=== PATIENT | female | born 1945 | race African-American/Black ===

== ENCOUNTER 2016-12-05 07:39 | Day surgery (SDC) | payer OTHER ==
[2016-12-04 10:28] VITALS: BMI 31.6
[2016-12-05] MEDS ORDERED: MIDAZOLAM HCL 2 MG/2 ML SINGLE DOSE VIAL ONE ×2 (10:14→10:24)
[2016-12-05] MEDS ORDERED: PROPOFOL 20 ML ONE (10:19)
[2016-12-05] MEDS ORDERED: ceFAZolin SODIUM 1 GM VIAL ONE (10:25)
[2016-12-05] MEDS ORDERED: ceFAZolin SODIUM 1 GM VIAL IVPB ONE (10:25)
--- NOTE | 2016-12-05 10:32 | OP ---
Operative Note - Note: Operative Date: 12/05/16 Pre-Operative Diagnosis: Bilateral Renal Calculi Operation: Right ESWL Post-Operative Diagnosis: Same as Pre-op Surgeon: Clifton Campbell MD. Anesthesia: MAC
[2016-12-05] MEDS ORDERED: DEXAMETHASONE SOD PHOSPHATE 4 MG/1 ML VIAL ONE (10:34)
[2016-12-05] MEDS ORDERED: ONDANSETRON 4 MG/2 ML VIAL IVPUSH PRN (10:55)
[2016-12-05] MEDS ORDERED: LACTATED RINGERS SOLUTION 1,000 ML IV SCH (11:00)
[2016-12-05 12:00] VITALS: TEMP 98.1
[2016-12-05 13:43] VITALS: BP 152/75; PULSE 80
--- NOTE | 2016-12-06 08:05 | OP ---
DATE OF OPERATION: 12/05/2016 SURGEON: Clifton Campbell MD PREOPERATIVE DIAGNOSIS: Bilateral renal calculi. POSTOPERATIVE DIAGNOSIS: Bilateral renal calculi. PROCEDURE: Right electroshock wave lithotripsy. HISTORY: The patient is a very pleasant 71-year-old female with a history of renal calculi on preoperative sonogram. She was found to have bilateral calculi. Of note is a previous CT scan dated November 21, 2016, which initial report was no calculi identified. However, on re-review with the radiologist, there was an evident 7-mm right renal pelvic calculus as well as possible ureteral calculus with hydronephrosis on the left side and trent calculus within the left kidney. Sonogram today preoperatively reveals a right renal calculus, which is a stone, which is being treated at this time. Risks and benefits of treatment and alternatives were discussed in detail. All questions were answered. BRIEF OPERATIVE NOTE: The patient was brought into the operating room, placed in supine position. Once sedation was administered, the stone was localized in the X, Y, and Z axis. At this time, 2500 shocks were delivered in electromagnetic fashion. There were no complications. Patient was brought to the recovery room in stable and satisfactory condition. CLIFTON CAMPBELL M.D. MAGAN/[id number]
== END 2016-12-05 13:20 | disposition home or self-care (01) ==
LOC: JASU-SURG 07:39
PROVIDERS: ATTEND Urology
PROC: 0TF3XZZ Fragmentation in Right Kidney Pelvis, External Approach (ICD-10-PCS; principal; 2016-12-05 09:45)
DX: N20.0 Calculus of kidney (principal)
CPT/HCPCS: 94760

== ENCOUNTER 2017-01-09 08:13 | Day surgery (SDC) | payer OTHER ==
[2016-12-28 16:48] VITALS: BMI 28.1
[~2017-01-09 08:13] MED LIST: ceFAZolin SODIUM 1 GM VIAL IVPB ONE
--- NOTE | 2017-01-09 10:43 | OP ---
Operative Note - Note: Operative Date: 01/09/17 Pre-Operative Diagnosis: Left renal calculus Operation: Left ESWL Post-Operative Diagnosis: Same as Pre-op Surgeon: Clifton Campbell MD. Operative Report Dictated: Yes
[2017-01-09] MEDS ORDERED: ceFAZolin SODIUM 1 GM VIAL ONE (10:53)
[2017-01-09] MEDS ORDERED: MIDAZOLAM HCL 2 MG/2 ML SINGLE DOSE VIAL ONE (10:54)
[2017-01-09] MEDS ORDERED: KETOROLAC TROMETHAMINE 30 MG/1 ML VIAL ONE (11:04)
[2017-01-09] MEDS ORDERED: ceFAZolin SODIUM 1 GM VIAL IVPB ONE (11:04)
[2017-01-09] MEDS ORDERED: oxyCODONE HCL 5 MG TABLET PO PRN (11:43)
[2017-01-09] MEDS ORDERED: ONDANSETRON 4 MG/2 ML VIAL IVPUSH PRN (11:43)
[2017-01-09] MEDS ORDERED: ACETAMINOPHEN 325 MG TABLET (FP) PO PRN (11:43)
[2017-01-09] MEDS ORDERED: LACTATED RINGERS SOLUTION 1,000 ML IV SCH (11:45)
[2017-01-09 11:57] VITALS: TEMP 98.9
[2017-01-09 14:48] VITALS: BP 120/60; PULSE 74
--- NOTE | 2017-01-10 07:24 | OP ---
DATE OF OPERATION: 01/09/2017 SURGEON: Clifton Campbell MD PREOPERATIVE DIAGNOSIS: Left renal calculus. POSTOPERATIVE DIAGNOSIS: Left renal calculus. PROCEDURE: Left extracorporeal shock wave lithotripsy. HISTORY: This is a very pleasant 71-year-old female with a history of recurrent bilateral renal calculi. The previous stone treatment on the right side was performed. However, the patient has persistent left-sided renal calculi measuring approximately 6 mm. There were small fragments identified. The case was discussed at length with the radiologist. Initially, calculi were not seen on the CT scan. However, on re-review, both stated stones were identified. BRIEF OPERATIVE NOTE: The patient was brought to the operating room, placed in supine position. The stone was visualized using 3D fluoroscopy. The patient was given intravenous antibiotics and then was sedated. Approximately 2500 shocks were delivered in electromagnetic fashion. His stones appeared to fragment well radiographically. There were no complications. Patient was brought to the recovery room in stable and satisfactory condition. Jhony AZEVEDO/[id number]
== END 2017-01-09 13:35 | disposition home or self-care (01) ==
LOC: JASU-SURG 08:13
PROVIDERS: ATTEND Urology
PROC: 0TF4XZZ Fragmentation in Left Kidney Pelvis, External Approach (ICD-10-PCS; principal; 2017-01-09 10:30)
DX: N20.0 Calculus of kidney (principal)
CPT/HCPCS: 94760

== ENCOUNTER 2018-09-09 10:39 | Emergency (ER) | payer OTHER ==
[2018-09-09 10:46] VITALS: TEMP 97.4; BMI 29.7
--- NOTE | 2018-09-09 11:14 | PDOC ---
History of Present Illness - General Chief Complaint: Respiratory Stated Complaint: HEADACHE - History of Present Illness Initial Comments: The patient is a 73F w/ history of T2DM, HTN, and hyperthyroidism who presents for several weeks of persistent productive cough that is worse at night. The patient reports sputum alternates between clear and yellow. She also states that when she coughs for extended periods, her cough will become bark-like and w / associated sore throat. She denies fevers/chills, MCKINNEY, vision changes, SOB, chest pain, abdominal pain, N/V/C/D. She reports recent concurrent rhinorrhea as well. She was prescribed Fluticasone spray last week w/ some relief. She has also tried lozenges with some relief during the day At the time of being seen by her PCP, she declined wanting to use an anti- tussive at that time Denies flu shot this year PCP - Dr. Becky Niño 09/09/18 11:26 09/09/18 11:30 Past History - Past Medical History Allergies/Adverse Reactions: Allergies Allergy/AdvReac Type Severity Reaction Status Date / Time No Known Allergies Allergy Verified 09/09/18 10:41 Home Medications: Ambulatory Orders Enalapril Maleate [Vasotec -] 5 mg PO DAILY #0 tablet 02/21/14 Methimazole [Tapazole -] 10 mg PO DAILY #0 tablet 02/21/14 Glipizide/Metformin HCl [Glipizide-Metformin 5-500 mg] 2 each PO BID 04/15/14 Atorvastatin Ca [Lipitor] 20 mg PO HS 09/05/16 Guaifenesin Dm [Robitussin Dm -] 10 ml PO Q4H #1 bottle 09/09/18 Anemia: No Asthma: No Cancer: Yes (endometrial) Cardiac Disorders: No CVA: No COPD: No CHF: No Dementia: No Diabetes: Yes (oral meds) GI Disorders: No Disorders: No HTN: Yes Hypercholesterolemia: Yes Kidney Stones: Yes Liver Disease: No Seizures: No Thyroid Disease: Yes (THYROID NODULE;HYPER) - Surgical History Abdominal Surgery: Yes Appendectomy: No Cardiac Surgery: No Cholecystectomy: No Lung Surgery: No Neurologic Surgery: No - Reproductive History Endometrial CA: Yes - Immunization History Immunization Up to Date: Yes - Suicide/Smoking/Psychosocial Hx Smoking Status: No Smoking History: Never smoked Have you smoked in the past 12 months: No Number of Cigarettes Smoked Daily: 0 Hx Alcohol Use: No Drug/Substance Use Hx: No Substance Use Type: None Hx Substance Use Treatment: No Review of Systems - Review of Systems Able to Perform ROS?: Yes Comments:: GENERAL/CONSTITUTIONAL: No fever or chills. No weakness HEAD, EYES, EARS, NOSE AND THROAT: No change in vision. No ear pain or discharge CARDIOVASCULAR: No chest pain or shortness of breath RESPIRATORY: per HPI GASTROINTESTINAL: No nausea, vomiting, diarrhea or constipation GENITOURINARY: No dysuria, frequency, or change in urination MUSCULOSKELETAL: No joint or muscle swelling or pain. No neck or back pain SKIN: No rash NEUROLOGIC: No headache, vertigo, loss of consciousness, or change in strength/ sensation ENDOCRINE: No increased thirst. No abnormal weight change HEMATOLOGIC/LYMPHATIC: No anemia, easy bleeding, or history of blood clots ALLERGIC/IMMUNOLOGIC: No hives or skin allergy 09/09/18 11:14 Is the patient limited Serbian proficient: No *Physical Exam - Vital Signs Last Vital Signs Temp Pulse Resp BP Pulse Ox 97.4 F L 92 H 20 177/85 H 99 09/09/18 10:43 09/09/18 10:43 09/09/18 10:43 09/09/18 10:43 09/09/18 10:43 - Physical Exam Comments: GENERAL: Awake, alert, and fully oriented, in no acute distress HEAD: No signs of trauma, normocephalic, atraumatic EYES: PERRLA, EOMI, sclera anicteric, conjunctiva clear ENT: Hearing grossly normal, nares patent, oropharynx clear without exudates. Moist mucosa LUNGS: No distress, speaks full sentences, clear to auscultation bilaterally HEART: Regular rate and rhythm, normal S1 and S2, no murmurs, rubs or gallops, peripheral pulses normal and equal bilaterally ABDOMEN: Soft, nontender, normoactive bowel sounds. No guarding, no rebound EXTREMITIES : Normal inspection, Normal range of motion, no edema. No clubbing or cyanosis NEUROLOGICAL: Cranial nerves II through XII grossly intact. Normal speech, normal gait, no focal sensorimotor deficits SKIN: Warm, Dry, normal turgor, no rashes or lesions noted 09/09/18 11:14 Medical Decision Making - Medical Decision Making The patient is a 73F w/ a history of T2DM, HTN, and hyperthyroidism who presents for evaluation of productive cough for several weeks Ddx: URI, PNA, PNX, influenza ED Course Patient w/o fever, non-toxic appearing, not likely flu Saturating well w/o respiratory distress or wheezing CXR w/o evidence of PNA or PNA Likely viral URI Rx for antitussive to pt's pharmacy Plan for D/C w/ PCP f/u Discharge instructions and return precautions given Patient in agreement and verbalizes understanding Dispo: Home 09/09/18 11:32 *DC/Admit/Observation/Transfer Diagnosis at time of Disposition: Upper respiratory infection Qualifiers: URI type: unspecified viral URI Qualified Code(s): J06.9 - Acute upper respiratory infection, unspecified - Discharge Dispostion Disposition: HOME Condition at time of disposition: Stable Decision to Admit order: No - Prescriptions Prescriptions: Guaifenesin Dm [Robitussin Dm -] 10 ml PO Q4H #1 bottle - Referrals Referrals: Becky Niño MD [Primary Care Provider] - - Patient Instructions Printed Discharge Instructions: DI for Viral Upper Respiratory Infection -- Adult Additional Instructions: You were seen in the Emergency Department today for evaluation of a productive cough. Please review the handout provided at discharge. A prescription as sent to the pharmacy that you specified. Please take as directed Return to the Emergency Department if you develop fevers/chills, worsening symptoms, difficulty breathing, or any new/concerning symptoms. - Post Discharge Activity
--- NOTE | 2018-09-09 11:48 | PDOC ---
Attending Attestation - Resident Resident Name: Renato Quijano - ED Attending Attestation I have performed the following: I have examined & evaluated the patient, The case was reviewed & discussed with the resident, I agree w/resident's findings & plan, Exceptions are as noted - HPI HPI: 09/09/18 12:04 73y F hx of DM2, HTN, hyperthyroidism, presnts with cough productive of clear/ yellow sputum that seems worse at niight for the past few weeks. Pt endorses nasal congestion and sore throat. denies any fever/chills, sob, plata, cp, abd pain, leg swelling, body aches. Pt note she saw an occasional steraking of blood last week, but has since resolved. +second hand smoke exposure on exam: no acute distress pulm: cta b/l no wheezing ext: no swelling, neg homans, no calf tenderness card: rrr, no mrg PCP - Dr. Becky Niño suspect viral syndrome will obtain cxr to r/o pna - Physicial Exam PE: 09/09/18 12:22 see above - Medical Decision Making 09/09/18 12:22 see above
[2018-09-09 12:59] VITALS: BP 159/79; PULSE 88
== END 2018-09-09 12:58 | disposition home or self-care (01) ==
LOC: JER 10:39
DX: J06.9 Acute upper respiratory infection, unspecified (principal); B97.89 Other viral agents as the cause of diseases classified elsewhere; I10 Essential (primary) hypertension; E11.9 Type 2 diabetes mellitus without complications; Z79.84 Long term (current) use of oral hypoglycemic drugs; E05.90 Thyrotoxicosis, unspecified without thyrotoxic crisis or storm
CPT/HCPCS: 71046-TC-FY; 99282-25

== ENCOUNTER 2019-03-25 06:56 | Day surgery (SDC) | payer OTHER | END 2019-03-25 14:15 | disposition home or self-care (01) | LOC: JASU-SURG 06:56 ==

== ENCOUNTER 2019-06-09 13:11 | Emergency (ER) | payer OTHER ==
[2019-06-09 13:21] VITALS: BP 128/81; PULSE 105; TEMP 98.5; BMI 29.0
--- NOTE | 2019-06-09 13:21 | PDOC ---
Rapid Medical Evaluation Time Seen by Provider: 06/09/19 13:19 Medical Evaluation: Allergies Allergy/AdvReac Type Severity Reaction Status Date / Time No Known Allergies Allergy Verified 03/25/19 08:01 06/09/19 13:19 CC: Right shoulder pain PE: No bony deformity, crepitus or step-off. FAROM. Orders: xray, ice Patient will proceed to ED for continued evaluation. Discharge Disposition - Diagnosis Shoulder pain - Referrals - Patient Instructions - Post Discharge Activity
--- NOTE | 2019-06-09 13:44 | PDOC ---
History of Present Illness - General Chief Complaint: Pain, Acute Stated Complaint: RT SHOULDER PAIN Time Seen by Provider: 06/09/19 13:19 - History of Present Illness Initial Comments: 06/09/19 13:46 74 y/o F with atraumatic L shoulder pain x1 week no systemic symptoms pain increases with motion Past History - Past Medical History Allergies/Adverse Reactions: Allergies Allergy/AdvReac Type Severity Reaction Status Date / Time No Known Allergies Allergy Verified 06/09/19 13:21 Home Medications: Ambulatory Orders Enalapril Maleate [Vasotec -] 5 mg PO DAILY #0 tablet 02/21/14 Methimazole [Tapazole -] 10 mg PO DAILY #0 tablet 02/21/14 Glipizide/Metformin HCl [Glipizide-Metformin 5-500 mg] 2 each PO BID 04/15/14 Atorvastatin Ca [Lipitor] 20 mg PO HS 09/05/16 Cyclobenzaprine HCl [Flexeril 10 mg] 10 mg PO HS PRN #10 tablet 06/09/19 Anemia: No Asthma: No Cancer: Yes (endometrial) Cardiac Disorders: No CVA: No COPD: No CHF: No Dementia: No Diabetes: Yes (oral meds) GI Disorders: No Disorders: No HTN: Yes Hypercholesterolemia: Yes Kidney Stones: Yes Liver Disease: No Seizures: No Thyroid Disease: Yes (THYROID NODULE;HYPER) - Surgical History Abdominal Surgery: Yes Appendectomy: No Cardiac Surgery: No Cholecystectomy: No Lung Surgery: No Neurologic Surgery: No Orthopedic Surgery: No - Reproductive History Endometrial CA: Yes - Immunization History Immunization Up to Date: Yes - Suicide/Smoking/Psychosocial Hx Smoking Status: No Smoking History: Never smoked Have you smoked in the past 12 months: No Number of Cigarettes Smoked Daily: 0 Hx Alcohol Use: No Drug/Substance Use Hx: No Substance Use Type: None Hx Substance Use Treatment: No Review of Systems - Review of Systems Musculoskeletal: Yes: Joint Pain *Physical Exam - Vital Signs Last Vital Signs Temp Pulse Resp BP Pulse Ox 98.5 F 105 H 16 128/81 98 06/09/19 13:17 06/09/19 13:17 06/09/19 13:17 06/09/19 13:17 06/09/19 13:17 - Physical Exam Comments: 06/09/19 13:45 L shoulder skin color and temperature are normal. There is tendernss about the medial aspect of the scapula about the musculature. No gross sensory or motor deficits NVID Medical Decision Making - Medical Decision Making 06/09/19 13:43 Atraumatic L shoulder pain, I will hold off on x-rays, tendernss about medial border of sacpula about, most likely muscle spasm. Will refer to ortho *DC/Admit/Observation/Transfer Diagnosis at time of Disposition: Shoulder pain - Discharge Dispostion Disposition: HOME Condition at time of disposition: Stable Decision to Admit order: No - Referrals Referrals: Martin Stoll DO [Staff Physician] - - Patient Instructions Printed Discharge Instructions: DI for Shoulder Pain Additional Instructions: Return to the emergency room for worsening symptoms. Flexeril one tablet before bedtime will make you sleepy. Follow-up with orthopedic surgery in 1-2 days without fail for further evaluation and treatment options. - Post Discharge Activity
== END 2019-06-09 13:48 | disposition home or self-care (01) ==
LOC: JERFT 13:11
DX: M25.512 Pain in left shoulder (principal); I10 Essential (primary) hypertension; E78.00 Pure hypercholesterolemia, unspecified; E11.9 Type 2 diabetes mellitus without complications; E05.90 Thyrotoxicosis, unspecified without thyrotoxic crisis or storm; E04.1 Nontoxic single thyroid nodule; Z85.42 Personal history of malignant neoplasm of other parts of uterus; Z79.84 Long term (current) use of oral hypoglycemic drugs; Z87.442 Personal history of urinary calculi
CPT/HCPCS: 99282-25

== ENCOUNTER 2021-04-15 11:39 | Emergency (ER) | payer OTHER ==
[2021-04-15 11:52] VITALS: BP 143/74; PULSE 104; TEMP 98; BMI 29.0
[2021-04-15] MEDS ORDERED: ACETAMINOPHEN 500 MG TABLET (FP) PO ONE (12:06)
[2021-04-15] MEDS ORDERED: ACETAMINOPHEN 500 MG TABLET (FP) ONE (12:10)
== END 2021-04-15 14:36 | disposition home or self-care (01) ==
LOC: JERFT 11:39
DX: S40.012A Contusion of left shoulder, initial encounter (principal)
CPT/HCPCS: 73030-TC-LT-FY; 73060-TC-LT-FY; 99284-25

== ENCOUNTER 2021-07-20 13:46 | Emergency (ER) | payer OTHER ==
[2021-07-20 14:06] VITALS: TEMP 98.3; BMI 29.1
[2021-07-20] MEDS ORDERED: ACETAMINOPHEN 1000 MG/100 ML VIAL (NON FORMULARY) IVPB ONE (14:36)
[2021-07-20] MEDS ORDERED: FAMOTIDINE 20 MG/50 ML IVPB 20 MG/50 ML MG IVPB ONE ×2 (14:36→15:11)
[2021-07-20] MEDS ORDERED: SODIUM CHLORIDE 0.9% 500 ML INFUS.BAG IV ONE (14:36)
[2021-07-20] MEDS ORDERED: ACETAMINOPHEN INJECTION 100 ML IVPB ONE (15:11)
[2021-07-20 15:24] LABS: EPI CELLS 19 /uL (0-25.1); HYALINE CASTS 3 /uL (0-3.1); URINE APPEARANCE CLOUDY; URINE BACTERIA 473 /uL (0-1359); URINE BILIRUBIN NEGATIVE (NEGATIVE); URINE COLOR YELLOW; URINE GLUCOSE (UA) 3+ (NEGATIVE); URINE KETONE TRACE (NEGATIVE); URINE LEUK ESTERASE NEGATIVE (NEGATIVE); URINE NITRITE NEGATIVE (NEGATIVE); URINE PROTEIN 2+ (NEGATIVE); URINE WBC 18 /uL (0-25.8)
[2021-07-20 15:38] LABS: BASO % 0.2 % (0-2.0); EOS % 1.6 % (0-4.5); HEMATOCRIT 34.8 % (32.4-45.2); HEMOGLOBIN 11.8 GM/dL (10.7-15.3); LYMPH % 40.5 % (8-40); MCH 30.8 pg (25.7-33.7); MCHC 33.9 g/dl (32.0-36.0); MEAN CELL VOLUME 90.8 fl (80-96); MEAN PLT VOLUME 11.1 fl (7.5-11.1); MONO % 7.9 % (3.8-10.2); NEUT % 49.8 % (42.8-82.8); PLATELET COUNT 149 10^3/uL (134-434); RBC 3.84 M/mm3 (3.60-5.2); RDW 13.9 % (11.6-15.6)
[2021-07-20 15:56] LABS: INR 1.02 (0.83-1.09); PROTHROMBIN TIME (PATIENT) 12.5 SEC (9.7-13.0)
[2021-07-20 17:28] LABS: ALBUMIN 3.6 g/dl (3.4-5.0); ALK PHOS 123 U/L (45-117); ANION GAP 13 MMOL/L (8-16); BILIRUBIN,TOTAL 0.4 mg/dL (0.2-1); BLOOD UREA NITROGEN 15.1 mg/dL (7-18); CALCIUM 9.2 mg/dL (8.5-10.1); CHLORIDE 108 mmol/L (98-107); CO2 22 mmol/L (21-32); CREATININE 0.9 mg/dL (0.55-1.3); GLUCOSE,RANDOM 241 mg/dL (74-106); LIPASE 389 U/L (73-393); MAGNESIUM 1.4 mg/dL (1.8-2.4); SGOT/AST 12 U/L (15-37); SGPT/ALT 14 U/L (13-61); SODIUM 142 mmol/L (136-145); TOT PROT 7.3 g/dl (6.4-8.2)
[2021-07-20] MEDS ORDERED: MAGNESIUM SULF 50% (8.12 MEQ/2 ML-1 GM VIAL) IVPB ONE (17:28)
[2021-07-20] MEDS ORDERED: MAGNESIUM SULFATE IN WATER 2 GM/50 ML IVPB IVPB ONE (17:49)
[2021-07-20 19:08] LABS: URINE CRYSTALS MODERATE /hpf; URINE RBC 34 /uL (0-23.9)
[2021-07-20 19:33] VITALS: BP 137/75; PULSE 82
== END 2021-07-20 19:35 | disposition home or self-care (01) ==
LOC: JER 13:46
PROC: 3E0333Z Introduction of Anti-inflammatory into Peripheral Vein, Percutaneous Approach (ICD-10-PCS; principal; 2021-07-20)
PROC: 3E033GC Introduction of Other Therapeutic Substance into Peripheral Vein, Percutaneous Approach (ICD-10-PCS; 2021-07-20)
PROC: 3E033GC Introduction of Other Therapeutic Substance into Peripheral Vein, Percutaneous Approach (ICD-10-PCS; 2021-07-20)
DX: R10.9 Unspecified abdominal pain (principal)
CPT/HCPCS: 36415; 74177-TC; 76705-TC; 80053; 81003; 82550; 83605; 83690; 83735; 84484; 85025; 85610; 85730; 87086; 93005; 93010; 96374; 96375; 99285-25; J0131; Q9967

== ENCOUNTER 2022-09-26 03:07 | Observation (INO) | payer OTHER ==
[2022-09-26 03:33] VITALS: BMI 28.1
[2022-09-26 05:03] LABS: INR 0.98 (0.83-1.09); PROTHROMBIN TIME (PATIENT) 11.3 SEC (9.7-13.0)
[2022-09-26 05:28] LABS: ALBUMIN 3.5 g/dl (3.4-5.0); BLOOD UREA NITROGEN 17.7 mg/dL (7-18); CALCIUM 9.1 mg/dL (8.5-10.1)
[2022-09-26 05:32] LABS: CREATININE 0.7 mg/dL (0.55-1.3)
[2022-09-26 05:33] LABS: BILIRUBIN,TOTAL 0.4 mg/dL (0.2-1); TOT PROT 7.3 g/dl (6.4-8.2)
[2022-09-26 05:49] LABS: BASO % 0.2 % (0-2.0); HEMATOCRIT 36.1 % (32.4-45.2); HEMOGLOBIN 11.8 GM/dL (10.7-15.3); LYMPH % 20.2 % (8-40); MCH 29.9 pg (25.7-33.7); MCHC 32.8 g/dl (32.0-36.0); MEAN CELL VOLUME 91.1 fl (80-96); MEAN PLT VOLUME 11.2 fl (7.5-11.1); MONO % 17.1 % (3.8-10.2); NEUT % 62.5 % (42.8-82.8); PLATELET COUNT 136 10^3/uL (134-434); RBC 3.96 M/mm3 (3.60-5.2); RDW 13.3 % (11.6-15.6); WHITE BLOOD COUNT 4.1 K/mm3 (4.0-10.0)
[2022-09-26 06:34] LABS: EPI CELLS 17 /uL (0-25.1); HYALINE CASTS 1 /uL (0-3.1); PH,URINE 5.5 (5.0-8.0); URINE APPEARANCE CLEAR; URINE BACTERIA 425 /uL (0-1359); URINE BILIRUBIN NEGATIVE (NEGATIVE); URINE COLOR YELLOW; URINE GLUCOSE (UA) NEGATIVE (NEGATIVE); URINE KETONE NEGATIVE (NEGATIVE); URINE LEUK ESTERASE NEGATIVE (NEGATIVE); URINE NITRITE NEGATIVE (NEGATIVE); URINE PROTEIN 1+ (NEGATIVE); URINE RBC 4 /uL (0-23.9); URINE UROBILINOGEN 0.2 mg/dL (0.2-1.0); URINE WBC 6 /uL (0-25.8)
[2022-09-26] MEDS ORDERED: ENALAPRIL MALEATE 5 MG TABLET ONE ×2 (10:14→10:17)
[2022-09-26] MEDS ORDERED: ASPIRIN COATED 81 MG TABLET.EC ONE (10:14)
[2022-09-26] MEDS ORDERED: ENALAPRIL MALEATE 10 MG TABLET PO SCH (10:15)
[2022-09-26] MEDS ORDERED: ASPIRIN 81 MG CHEWABLE TABLETS ONE (10:18)
[2022-09-26] MEDS: ASPIRIN COATED 81 MG TABLET.EC PO SCH (10:21)
[2022-09-26] MEDS ORDERED: ENOXAPARIN NA (PORCINE) 40 MG/0.4 ML DISP.SYRIN SQ ONE (11:14)
[2022-09-26] MEDS: ENOXAPARIN NA (PORCINE) 40 MG/0.4 ML DISP.SYRIN SQ SCH (11:17)
[2022-09-26] MEDS ORDERED: LACTATED RINGERS SOLUTION 1000 ML INFUS.BAG IV ONE (13:39)
[2022-09-26] MEDS ORDERED: ACETAMINOPHEN 325 MG TABLET (FP) PO PRN (13:51)
[2022-09-26] MEDS ORDERED: metoPROLOL SUCCINATE 25 MG TAB.SR.24H (FP) PO ONE (14:19)
[2022-09-26] MEDS: metoPROLOL SUCCINATE 25 MG TAB.SR.24H (FP) PO SCH (14:24)
[2022-09-26] MEDS: INSULIN SLIDING SCALE (NOVOLOG) 1 VIAL SQ SCH ×2 (16:55→21:17)
[2022-09-26] MEDS: METHIMAZOLE 10 MG TABLET PO SCH (21:17)
[2022-09-26] MEDS: ATORVASTATIN CA 40 MG TABLET (FP) PO SCH (21:17)
[2022-09-26] MEDS ORDERED: ATORVASTATIN CA 20 MG TABLET (FP) PO SCH (22:00)
[2022-09-27] MEDS: INSULIN SLIDING SCALE (NOVOLOG) 1 VIAL SQ SCH ×4 (06:03→21:51)
[2022-09-27 07:14] LABS: CALCIUM 8.6 mg/dL (8.5-10.1)
[2022-09-27 07:15] LABS: BLOOD UREA NITROGEN 13.9 mg/dL (7-18); MAGNESIUM 1.8 mg/dL (1.8-2.4)
[2022-09-27 07:18] LABS: CREATININE 0.7 mg/dL (0.55-1.3)
[2022-09-27] MEDS: ENOXAPARIN NA (PORCINE) 40 MG/0.4 ML DISP.SYRIN SQ SCH (10:04)
[2022-09-27] MEDS: ASPIRIN COATED 81 MG TABLET.EC PO SCH (10:04)
[2022-09-27] MEDS: ENALAPRIL MALEATE 10 MG TABLET PO SCH (10:04)
[2022-09-27] MEDS: metoPROLOL SUCCINATE 25 MG TAB.SR.24H (FP) PO SCH (10:04)
[2022-09-27] MEDS: METHIMAZOLE 10 MG TABLET PO SCH ×2 (10:04→21:51)
[2022-09-27] MEDS: ATORVASTATIN CA 40 MG TABLET (FP) PO SCH (21:50)
[2022-09-27] MEDS ORDERED: LIDOCAINE PATCH REMOVAL MC SCH (22:00)
[2022-09-28] MEDS: INSULIN SLIDING SCALE (NOVOLOG) 1 VIAL SQ SCH ×3 (06:09→16:16)
[2022-09-28 06:27] VITALS: RESP 20
[2022-09-28 09:16] LABS: BASO % 0.1 % (0-2.0); EOS % 1.1 % (0-4.5); HEMATOCRIT 35.2 % (32.4-45.2); HEMOGLOBIN 11.7 GM/dL (10.7-15.3); LYMPH % 26.1 % (8-40); MCH 29.9 pg (25.7-33.7); MCHC 33.2 g/dl (32.0-36.0); MEAN CELL VOLUME 90.1 fl (80-96); MEAN PLT VOLUME 10.8 fl (7.5-11.1); MONO % 10.8 % (3.8-10.2); NEUT % 61.9 % (42.8-82.8); PLATELET COUNT 133 10^3/uL (134-434); RBC 3.91 M/mm3 (3.60-5.2); RDW 13.3 % (11.6-15.6); WHITE BLOOD COUNT 5.8 K/mm3 (4.0-10.0)
[2022-09-28] MEDS: METHIMAZOLE 10 MG TABLET PO SCH (09:59)
[2022-09-28] MEDS: ENALAPRIL MALEATE 10 MG TABLET PO SCH (09:59)
[2022-09-28] MEDS: ASPIRIN COATED 81 MG TABLET.EC PO SCH (09:59)
[2022-09-28] MEDS: metoPROLOL SUCCINATE 25 MG TAB.SR.24H (FP) PO SCH (09:59)
[2022-09-28] MEDS ORDERED: LIDOCAINE 5% TOPICAL PATCH TP SCH (10:00)
[2022-09-28] MEDS ORDERED: CLOPIDOGREL BISULFATE 75 MG TABLET (FP) PO SCH (10:00)
[2022-09-28 10:17] LABS: BLOOD UREA NITROGEN 14.3 mg/dL (7-18)
[2022-09-28 10:20] LABS: CALCIUM 9.3 mg/dL (8.5-10.1); MAGNESIUM 1.7 mg/dL (1.8-2.4); PHOSPHOROUS 2.9 mg/dL (2.5-4.9)
[2022-09-28 10:21] LABS: ALBUMIN 3.1 g/dl (3.4-5.0); CREATININE 0.6 mg/dL (0.55-1.3)
[2022-09-28 10:22] LABS: TOT PROT 6.7 g/dl (6.4-8.2)
[2022-09-28 10:23] LABS: BILIRUBIN,TOTAL 0.6 mg/dL (0.2-1)
[2022-09-28 14:30] VITALS: BP 126/74; PULSE 86; TEMP 97.9
== END 2022-09-28 18:36 | disposition home or self-care (01) ==
LOC: JER 03:07 → UNDOADMOB 05:32 → INTOOBSV 05:32 → JERBED 05:32 → J2W 15:38 → J4S 09-27 20:46
PROVIDERS: ADMIT Internal Medicine; ATTEND Internal Medicine
PROC: 3E023GC Introduction of Other Therapeutic Substance into Muscle, Percutaneous Approach (ICD-10-PCS; principal; 2022-09-26)
DX: I63.81 Other cerebral infarction due to occlusion or stenosis of small artery (principal); U07.1 COVID-19; E23.2 Diabetes insipidus; E04.1 Nontoxic single thyroid nodule; Z85.89 Personal history of malignant neoplasm of other organs and systems; N20.0 Calculus of kidney; E78.5 Hyperlipidemia, unspecified; I10 Essential (primary) hypertension; R05.9 Cough, unspecified
CPT/HCPCS: 0241U-QW; 36415; 70450-TC; 70551-TC; 71045-TC-FY; 72125-TC; 73560-TC-RT-FY; 80048; 80053; 80061; 81003; 82136; 82962; 83036; 83735; 83918; 84100; 84484; 85025; 85610; 85730; 86850; 86900; 86901; 93005; 93010; 93880-TC; 96372; 97116-GP; 97161-GP; 99285-25; G0378

== ENCOUNTER 2023-12-22 09:36 | Emergency (ER) | payer OTHER ==
[2023-12-22 09:51] VITALS: RESP 18; BMI 33.6
[2023-12-22 12:34] LABS: BASO % 0.5 % (0-2.0); EOS % 1.2 % (0-4.5); HEMATOCRIT 38.8 % (32.4-45.2); HEMOGLOBIN 13.1 GM/dL (10.7-15.3); LYMPH % 41.1 % (8-40); MCH 30.4 pg (25.7-33.7); MCHC 33.8 g/dl (32.0-36.0); MEAN CELL VOLUME 89.9 fl (80-96); MEAN PLT VOLUME 10.8 fl (7.5-11.1); MONO % 6.5 % (3.8-10.2); NEUT % 50.7 % (42.8-82.8); PH,URINE 5.5 (5.0-8.0); PLATELET COUNT 145 10^3/uL (134-434); RBC 4.32 M/mm3 (3.60-5.2); RDW 14.1 % (11.6-15.6); URINE APPEARANCE CLEAR; URINE BILIRUBIN NEGATIVE (NEGATIVE); URINE COLOR YELLOW; URINE GLUCOSE (UA) 3+ (NEGATIVE); URINE KETONE NEGATIVE (NEGATIVE); URINE LEUK ESTERASE NEGATIVE (NEGATIVE); URINE NITRITE NEGATIVE (NEGATIVE); URINE PROTEIN NEGATIVE (NEGATIVE); URINE UROBILINOGEN 0.2 mg/dL (0.2-1.0); WHITE BLOOD COUNT 4.8 K/mm3 (4.0-10.0)
[2023-12-22] MEDS ORDERED: ACETAMINOPHEN 325 MG TABLET (FP) ONE (12:56)
[2023-12-22] MEDS ORDERED: FLUCONAZOLE 150 MG TABLET PO ONE (12:56)
[2023-12-22] MEDS: FLUCONAZOLE 150 MG TABLET PO ONE (12:59)
[2023-12-22] MEDS: ACETAMINOPHEN 325 MG TABLET (FP) PO ONE (12:59)
[2023-12-22 13:03] LABS: POTASSIUM 4.5 mmol/L (3.5-5.1)
[2023-12-22 13:05] LABS: ALBUMIN 3.4 g/dl (3.4-5.0); BLOOD UREA NITROGEN 14.6 mg/dL (7-18); CALCIUM 9.4 mg/dL (8.5-10.1)
[2023-12-22 13:08] LABS: CREATININE 0.7 mg/dL (0.55-1.3)
[2023-12-22 13:10] LABS: TOT PROT 7.2 g/dl (6.4-8.2)
[2023-12-22] MEDS: SODIUM CHLORIDE 0.9% 1000 ML INFUS.BAG IV ONE (15:25)
[2023-12-22 17:02] VITALS: TEMP 97.8
[2023-12-22 17:19] VITALS: BP 136/72; PULSE 78
== END 2023-12-22 17:19 | disposition home or self-care (01) ==
LOC: JER 09:36
DX: R10.816 Epigastric abdominal tenderness (principal); R10.814 Left lower quadrant abdominal tenderness; E11.65 Type 2 diabetes mellitus with hyperglycemia; B37.31 Acute candidiasis of vulva and vagina
CPT/HCPCS: 36415; 74177-TC; 80053; 81003; 82962; 83690; 85025; 87077; 87086; 99285-25; Q9967

== ENCOUNTER 2025-04-29 11:12 | Emergency (ER) | payer OTHER ==
[2025-04-29 11:31] VITALS: RESP 19; TEMP 97.8; BMI 29.7
[2025-04-29] MEDS ORDERED: FAMOTIDINE 20 MG/50 ML IVPB 20 MG/50 ML MG IVPB ONE (13:21)
[2025-04-29] MEDS ORDERED: ACETAMINOPHEN INJECTION 100 ML ONE (13:39)
[2025-04-29] MEDS ORDERED: MAG HYDROX/AL HYDROX/SIMETH 30 ML UNIT-DOSE CUP ONE (13:39)
[2025-04-29] MEDS: ACETAMINOPHEN 1000 MG/100 ML BAG IVPB ONE (14:07)
[2025-04-29] MEDS: SODIUM CHLORIDE 0.9% 500 ML INFUS.BAG IV ONE (14:07)
[2025-04-29] MEDS: MAG HYDROX/AL HYDROX/SIMETH 30 ML UNIT-DOSE CUP PO ONE (14:08)
[2025-04-29 14:10] LABS: ABSOLUTE IMMATURE GRANULOCYTES 0.03 x10^3/uL (0.0-0.031); BASOPHILS # 0.01 x10^3/uL (0.01-0.08); EOSINOPHIL % 1.6 % (0.7-5.8); EOSINOPHILS # 0.15 x10^3/uL (0.04-0.36); MCHC 31.7 g/dl (32.2-35.5); MEAN CELL VOLUME 93.2 fl (79.4-94.8); MEAN PLT VOLUME 11.8 fl (9.4-12.3); MONOCYTE # 0.93 x10^3/uL (0.24-0.86); MONOCYTE % 10.2 % (4.7-12.5); RDW 13.0 % (12.4-16.6)
[2025-04-29 14:11] LABS: URINE APPEARANCE CLEAR; URINE BILIRUBIN NEGATIVE (NEGATIVE); URINE COLOR YELLOW; URINE GLUCOSE (UA) NEGATIVE (NEGATIVE); URINE KETONE NEGATIVE (NEGATIVE); URINE LEUK ESTERASE NEGATIVE (NEGATIVE); URINE NITRITE NEGATIVE (NEGATIVE); URINE PROTEIN NEGATIVE (NEGATIVE); URINE UROBILINOGEN 0.2 mg/dL (0.2-1.0)
[2025-04-29 15:24] LABS: CO2 27.0 mmol/L (21-32); GLUCOSE,RANDOM 67.0 mg/dL (74-106)
[2025-04-29 15:27] LABS: CREATININE 0.6 mg/dL (0.55-1.3); SGOT/AST 16.0 U/L (15-37); SGPT/ALT 18.0 U/L (13-61)
[2025-04-29 15:28] LABS: TOT PROT 6.9 g/dl (6.4-8.2)
[2025-04-29 15:30] LABS: ALK PHOS 120.0 U/L (45-117)
[2025-04-29 18:10] VITALS: BP 162/72; PULSE 94
== END 2025-04-29 18:24 | disposition home or self-care (01) ==
LOC: JER 11:12
PROC: 3E033NZ Introduction of Analgesics, Hypnotics, Sedatives into Peripheral Vein, Percutaneous Approach (ICD-10-PCS; principal; 2025-04-29)
DX: R10.84 Generalized abdominal pain (principal); R60.0 Localized edema; K59.00 Constipation, unspecified
CPT/HCPCS: 36415; 74177-TC; 80053; 81003; 83605; 83690; 84484; 85025; 86850; 86900; 86901; 87086; 93005; 93010; 99285-25; Q9967